=== PATIENT | female | born 1985 | race Caucasian/White ===

== ENCOUNTER 2017-08-22 12:04 | Emergency (ER) | payer OTHER ==
[~2017-08-22] VITALS: Ht 172.7 cm; Wt 59.0 kg
[~2017-08-22 12:04] MED LIST: CIPR500 PO; CYCL10 PO; Cleocin HCl300 MG PO; HYDACE5 PO; IBUP800 PO; Keflex500 MG PO; Macrobid 100 M100 MG PO; NAPR500 PO; ONDA4 PO; OXYACE5T PO; Percocet 5-3251 EACH PO; TRAM50 PO; Zofran Odt4 MG SL
[2017-08-22] MEDS ORDERED: Augmentin 875-1 EACH PO (13:13)
== END 2017-08-22 13:17 | disposition home or self-care (01) ==
LOC: ER 12:04
DX: J32.9 Chronic sinusitis, unspecified (principal); Z87.891 Personal history of nicotine dependence
CPT/HCPCS: 99282

== ENCOUNTER → 2017-09-19 | Outpatient (CLI) | payer OTHER ==
[~2017-09-19] MED LIST changes: +Augmentin 875-1 EACH PO
[2017-09-19 14:23] LABS: Specimen Source URINE
[2017-09-20 10:44] LABS: Candida species (DNA Probe) Negative (NEGATIVE); G. vaginalis (DNA Probe) Positive (NEGATIVE); T. vaginalis (DNA Probe) Negative (NEGATIVE)
[2017-09-20 10:47] LABS: Source Urine
== END ==
LOC: LAB SHORT 14:17 → LAB EV 14:17
PROVIDERS: Physician Assistant
DX: R30.0 Dysuria (principal); Z20.9 Contact with and (suspected) exposure to unspecified communicable disease
CPT/HCPCS: 87086; 87480; 87491; 87510; 87529; 87591; 87660

== ENCOUNTER → 2018-06-17 | Outpatient (CLI) | payer OTHER ==
[2018-06-20 01:10] LABS: CHLAMYDIA TRACHOMATIS, NAA Negative (Negative); HPV 16 Negative (Negative); HPV 18 Negative (Negative); HPV OTHER HR TYPES Positive (Negative); NEISSERIA GONORRHOEAE, NAA Negative (Negative)
== END | disposition home or self-care (01) ==
LOC: LAB 12:19 → LAB SHORT 12:19
PROVIDERS: Obstetrics & Gynecology
DX: Z36.89 Encounter for other specified antenatal screening (principal)
CPT/HCPCS: 87491; 87591; 87624; G0123

== ENCOUNTER → 2018-12-03 | Outpatient (CLI) | payer OTHER | END | disposition home or self-care (01) | LOC: LAB SHORT 12:51 → LAB 12:51 | DX: Z34.80 Encounter for supervision of other normal pregnancy, unspecified trimester (principal) | CPT/HCPCS: 87081; 87653 ==

== ENCOUNTER → 2019-03-24 | Outpatient (CLI) | payer OTHER | END | disposition home or self-care (01) | LOC: LAB SHORT 18:48 → LAB EV 18:48 | DX: N39.0 Urinary tract infection, site not specified (principal) | CPT/HCPCS: 87077; 87086; 87186 ==

== ENCOUNTER 2019-04-11 21:24 | Emergency (ER) | payer OTHER ==
[~2019-04-11] VITALS: Ht 175.3 cm; Wt 68.0 kg
== END 2019-04-11 23:00 | disposition left against medical advice (07) ==
LOC: ER 21:24
DX: Z53.21 Procedure and treatment not carried out due to patient leaving prior to being seen by health care provider (principal)

== ENCOUNTER → 2019-10-28 | Outpatient (CLI) | payer OTHER ==
[2019-10-30 19:08] LABS: HPV 16 Negative (Negative); HPV 18 Negative (Negative); HPV OTHER HR TYPES Negative (Negative)
== END | disposition home or self-care (01) ==
LOC: LAB 11:00 → LAB SHORT 11:00
PROVIDERS: Obstetrics & Gynecology
DX: Z01.419 Encounter for gynecological examination (general) (routine) without abnormal findings (principal)
CPT/HCPCS: 87624; G0123

== ENCOUNTER 2020-08-25 11:46 | Day surgery (SDC) | payer OTHER ==
[~2020-08-25] VITALS: Ht 172.7 cm; Wt 66.9 kg
[2020-08-25] MEDS ORDERED: IBUP600 (12:14)
[2020-08-25] MEDS ORDERED: ACET325 PO (12:14)
--- NOTE | 2020-08-25 12:16 | NUR ---
08/25/20 1216 Barrie Ramos CALL LIGHT WITHIN REACH
--- NOTE | 2020-08-25 13:28 | NUR ---
08/25/20 1328 Clari Chung ABDOMINAL AREA PREPPED WITH DURAPREP BY ORSC.KNM BE AREA & THIGHS PREPPED BY ORSC.CHAUNCEY WITH BETADINE SOLUTION. BUPIVACAINE 0.5% 30 MLS MIXED WITH 0.15 EPI PER ORDER TO MAKE BUPIVACAINE 0.5% 1:200,000 FOR INJECTION AT OPSITE BY DR. DANIEL. 20 MLS OF THIS INJECTED BY DR. DANIEL.
== END 2020-08-25 14:21 | disposition home or self-care (01) ==
LOC: ORSCSDS 11:46
PROVIDERS: Obstetrics & Gynecology
PROC: 0UT74ZZ Resection of Bilateral Fallopian Tubes, Percutaneous Endoscopic Approach (ICD-10-PCS; principal; 2020-08-25 13:00)
DX: Z30.2 Encounter for sterilization (principal); F17.210 Nicotine dependence, cigarettes, uncomplicated
CPT/HCPCS: 88302; J0171; J0330; J1100; J1885; J2250; J2405; J2704; J3010; J7120

== ENCOUNTER → 2021-06-20 | Outpatient (CLI) | payer OTHER ==
[~2021-06-20] MED LIST changes: +ACET325 PO; +IBUP600
[2021-06-22 16:12] LABS: HPV 16 Negative (Negative); HPV 18 Negative (Negative); HPV OTHER HR TYPES Negative (Negative)
== END | disposition home or self-care (01) ==
LOC: LAB SHORT 13:49
PROVIDERS: Obstetrics & Gynecology
DX: Z01.419 Encounter for gynecological examination (general) (routine) without abnormal findings (principal)
CPT/HCPCS: 87624; G0123